=== PATIENT | female | born 1965 | race Caucasian/White ===

== ENCOUNTER → 2016-05-08 | Outpatient (CLI) | payer OTHER ==
[2016-05-08 10:27] LABS: BASO # 0.1 K/mm3 (0.0-0.2); BASO % 0.9 % (0.0-1.0); EOS # 0.2 K/mm3 (0.0-0.50); EOS % 2.8 % (0.0-3.0); LARGE UNSTAINED CELL # 0.2 K/mm3 (0.0-0.4); LARGE UNSTAINED CELL % 1.8 % (0.0-4.0); LYMPH # 2.7 K/mm3 (1.5-4.5); LYMPH % 30.1 % (24.0-44.0); MEAN CORPUSCULAR HEMOGLOBIN 27.7 pg (27.0-33.0); MEAN CORPUSCULAR HGB CONC 31.7 g/dl (32.0-36.5); MEAN CORPUSCULAR VOLUME 87.6 fl (80.0-96.0); MONO # 0.4 K/mm3 (0.0-0.8); MONO % 4.7 % (0.0-5.0); NEUTROPHILS % 59.6 % (36.0-66.0); PLATELET COUNT, AUTOMATED 260 k/mm3 (150-450); RED CELL DISTRIBUTION WIDTH 13.8 % (11.5-14.5); WHITE BLOOD COUNT 8.3 K/mm3 (4.0-10.0)
[2016-05-08 11:01] LABS: ALBUMIN 3.6 GM/DL (3.2-5.2); ALBUMIN/GLOBULIN RATIO 1.16 (1.00-1.93); ALKALINE PHOSPHATASE 100 U/L (45-117); ALT/SGPT 26 U/L (12-78); ANION GAP 6 MEQ/L (8-16); AST/SGOT 12 U/L (15-37); BILIRUBIN,TOTAL 0.4 MG/DL (0.2-1.0); BLOOD UREA NITROGEN 17 MG/DL (7-18); CALCIUM LEVEL 8.7 MG/DL (8.5-10.1); CARBON DIOXIDE LEVEL 29 MEQ/L (21-32); CHLORIDE LEVEL 106 MEQ/L (98-107); CHOLESTEROL LEVEL 150 MG/DL (<200); CREATININE FOR GFR 0.75 MG/DL (0.55-1.02); GLOMERULAR FILTRATION RATE > 60.0 (>51); GLUCOSE, FASTING 96 MG/DL (70-105); POTASSIUM SERUM 4.5 MEQ/L (3.5-5.1); SODIUM LEVEL 141 MEQ/L (136-145); TOTAL PROTEIN 6.7 GM/DL (6.4-8.2); TRIGLYCERIDES LEVEL 79 MG/DL (<150)
== END ==
LOC: M LAB 09:41
PROVIDERS: ATTEND Family Medicine Addiction Medicine
DX: D64.9 Anemia, unspecified (principal)

== ENCOUNTER → 2016-08-06 | Outpatient (CLI) | payer MEDICAID, OTHER, SELFPAY ==
[2016-08-06 11:25] LABS: ALBUMIN 3.4 GM/DL (3.2-5.2); ALBUMIN/GLOBULIN RATIO 1.03 (1.00-1.93); ALKALINE PHOSPHATASE 89 U/L (45-117); ALT/SGPT 21 U/L (12-78); ANION GAP 7 MEQ/L (8-16); AST/SGOT 8 U/L (15-37); BILIRUBIN,TOTAL 0.4 MG/DL (0.2-1.0); BLOOD UREA NITROGEN 20 MG/DL (7-18); CALCIUM LEVEL 8.4 MG/DL (8.5-10.1); CARBON DIOXIDE LEVEL 27 MEQ/L (21-32); CHLORIDE LEVEL 106 MEQ/L (98-107); CHOLESTEROL LEVEL 140 MG/DL (<200); CREATININE FOR GFR 0.61 MG/DL (0.55-1.02); GLOMERULAR FILTRATION RATE > 60.0 (>51); GLUCOSE, FASTING 105 MG/DL (70-105); POTASSIUM SERUM 4.5 MEQ/L (3.5-5.1); SODIUM LEVEL 140 MEQ/L (136-145); TOTAL PROTEIN 6.7 GM/DL (6.4-8.2); TRIGLYCERIDES LEVEL 55 MG/DL (<150)
== END ==
LOC: M LAB 10:10
PROVIDERS: ATTEND Family Medicine Addiction Medicine
DX: R73.9 Hyperglycemia, unspecified (principal)

== ENCOUNTER → 2016-08-28 | Outpatient (CLI) | payer MEDICAID ==
--- NOTE | 2016-08-28 10:21 | REP ---
Clinical: Abdominal pain. Technique: Real time damon scale ultrasound examination using curved array transducer. Findings: Status post cholecystectomy 2008. Liver and pancreas are normal in contour, size, echogenicity, and overall appearance without focal hepatic or pancreatic lesions identified. Mild fatty infiltration to the liver cannot be excluded. The common bile duct demonstrates normal compensatory dilatation measuring 8.8 mm diameter. Right kidney is normal in reniform shape without hydronephrosis and measures 11.2 x 5.9 x 4.4 cm. No ascites. Impression: Mild hepatosteatosis cannot be excluded. Otherwise normal right upper quadrant ultrasound. Signed by Oscar Renner MD 08/28/2016 10:12 A
== END ==
LOC: M RAD 09:25
PROVIDERS: ATTEND Family Medicine Addiction Medicine
DX: K76.0 Fatty (change of) liver, not elsewhere classified (principal)

== ENCOUNTER 2017-06-20 09:34 | Day surgery (SDC) | payer OTHER ==
[2017-06-20] MEDS ORDERED: NS 1,000 ML IV (10:45)
[2017-06-20] MEDS ORDERED: LIDOCAINE 2% INJ 100 MG/5 ML SDV (FOR ANES.) As Ordered ×3 (11:55→12:19)
[2017-06-20] MEDS ORDERED: PROPOFOL 200 MG/20 ML VIAL As Ordered ×3 (11:55→12:19)
== END 2017-06-20 12:53 | disposition home or self-care (01) ==
LOC: M OPP 09:34
DX: Z12.11 Encounter for screening for malignant neoplasm of colon (principal); K64.8 Other hemorrhoids; R12 Heartburn; K21.9 Gastro-esophageal reflux disease without esophagitis; E11.9 Type 2 diabetes mellitus without complications; E78.5 Hyperlipidemia, unspecified; M17.0 Bilateral primary osteoarthritis of knee; F32.9 Major depressive disorder, single episode, unspecified; Z79.84 Long term (current) use of oral hypoglycemic drugs; Z79.899 Other long term (current) drug therapy; Z88.8 Allergy status to other drugs, medicaments and biological substances
CPT/HCPCS: 45378

== ENCOUNTER → 2017-08-06 | Outpatient (REF) | payer OTHER ==
[2017-08-06 19:15] LABS: MALB URINE SIEMENS 32.3 MG/L; MAU/CREAT RATIO 22.4 MCG/MG (0.0-30.0)
[2017-08-06 20:13] LABS: ESTIMATED AVERAGE GLUCOSE 151 MG/DL (60-110); HEMOGLOBIN A1c 6.9 %
[2017-08-06 20:23] LABS: ALBUMIN 3.6 GM/DL (3.2-5.2); ALBUMIN/GLOBULIN RATIO 0.95 (1.00-1.93); ALKALINE PHOSPHATASE 84 U/L (45-117); ALT/SGPT 36 U/L (12-78); ANION GAP 9 MEQ/L (8-16); AST/SGOT 16 U/L (7-37); BILIRUBIN,TOTAL 0.4 MG/DL (0.2-1.0); BLOOD UREA NITROGEN 10 MG/DL (7-18); CALCIUM LEVEL 8.9 MG/DL (8.5-10.1); CARBON DIOXIDE LEVEL 28 MEQ/L (21-32); CHLORIDE LEVEL 103 MEQ/L (98-107); CHOLESTEROL LEVEL 257 MG/DL (<200); CHOLESTEROL RISK RATIO 4.942 (<5); CREATININE FOR GFR 0.75 MG/DL (0.55-1.30); GLOMERULAR FILTRATION RATE > 60.0 (>51); GLUCOSE, FASTING 121 MG/DL (70-100); HDL CHOLESTEROL 52 MG/DL (>40); LDL CHOLESTEROL 172.4 MG/DL (<100); NON-HDL-C 205 MG/DL; POTASSIUM SERUM 4.5 MEQ/L (3.5-5.1); SODIUM LEVEL 140 MEQ/L (136-145); TOTAL PROTEIN 7.4 GM/DL (6.4-8.2); TRIGLYCERIDES LEVEL 163 MG/DL (<150)
== END ==
LOC: M LAB REF 17:14
DX: E11.9 Type 2 diabetes mellitus without complications (principal)

== ENCOUNTER → 2018-01-09 | Outpatient (REF) | payer OTHER ==
[2018-01-11 15:28] LABS: HPV HYBRID CAPTURE II Negative (Negative)
== END ==
LOC: M LAB REF 18:44
DX: Z12.4 Encounter for screening for malignant neoplasm of cervix (principal)

== ENCOUNTER → 2018-02-21 | Outpatient (REF) | payer OTHER, MEDICAID ==
[2018-02-21 13:41] LABS: ALBUMIN 3.3 GM/DL (3.2-5.2); ALBUMIN/GLOBULIN RATIO 0.92 (1.00-1.93); ALKALINE PHOSPHATASE 111 U/L (45-117); ALT/SGPT 57 U/L (12-78); ANION GAP 9 MEQ/L (8-16); AST/SGOT 31 U/L (7-37); BILIRUBIN,TOTAL 0.4 MG/DL (0.2-1.0); BLOOD UREA NITROGEN 17 MG/DL (7-18); CARBON DIOXIDE LEVEL 28 MEQ/L (21-32); CHLORIDE LEVEL 103 MEQ/L (98-107); CHOLESTEROL LEVEL 244 MG/DL (<200); CREATININE FOR GFR 0.79 MG/DL (0.55-1.30); GLOMERULAR FILTRATION RATE > 60.0 (>51); GLUCOSE, FASTING 177 MG/DL (70-100); HDL CHOLESTEROL 40 MG/DL (>40); LDL CHOLESTEROL 168 MG/DL (<100); MAGNESIUM LEVEL 1.5 MG/DL (1.8-2.4); NON-HDL-C 204 MG/DL; POTASSIUM SERUM 4.7 MEQ/L (3.5-5.1); SODIUM LEVEL 140 MEQ/L (136-145); TOTAL PROTEIN 6.9 GM/DL (6.4-8.2); TRIGLYCERIDES LEVEL 181 MG/DL (<150)
[2018-02-21 13:59] LABS: ESTIMATED AVERAGE GLUCOSE 203 MG/DL (60-110); HEMOGLOBIN A1c 8.7 %
== END ==
LOC: M LAB REF 12:22
DX: I10 Essential (primary) hypertension (principal)

== ENCOUNTER → 2018-03-27 | Outpatient (REF) | payer OTHER, MEDICAID ==
[~2018-03-27] MED LIST: CELE20TA PO; IBUP1TAB7 PO; METF850T4 PO
== END ==
LOC: M LAB REF 16:48
PROVIDERS: ATTEND Family Medicine Addiction Medicine
DX: E61.2 Magnesium deficiency (principal)

== ENCOUNTER → 2018-04-30 | Outpatient (CLI) | payer OTHER ==
[~2018-04-30] MED LIST changes: +GASTROGRAFIN SOLUTION 30ML (Q9963) As Ordered ONE; +ISOVUE-370 76% 100ML VIAL (Q9967) As Ordered ONE
--- NOTE | 2018-04-30 10:42 | REP ---
CT ABDOMEN PELVIS WITH IV AND ORAL CONTRAST: HISTORY: Right upper quadrant pain. Question ascites. COMPARISON STUDY: October 24, 2012. CT CONTRAST DOSE: 100 mL of intravenous Isovue 370. CT FINDINGS: Preliminary digital mica layer radiograph demonstrates an unremarkable bowel gas pattern. On lung window settings at the lung bases, there is a slightly spiculated 1.4 cm noncalcified pulmonary nodule in the left lower lobe which merits further evaluation. This is a new finding compared to the 2013 prior study. There is marked diffuse fatty infiltration of the liver with areas of fat sparing in the anterior aspect of the left lobe. No focal liver mass lesion is seen. Gallbladder is surgically absent. No pancreatic abnormality is seen. No adrenal lesion is observed. There is no evidence of abdominal ascites. Small and large intestinal bowel loops are unremarkable. Normal appendix is seen. No abdominal wall defect is observed. Kidneys enhance symmetrically and appear morphologically intact. No hydronephrosis is seen. Normal caliber aorta is seen. No uterine or significant ovarian abnormality is observed. Urinary bladder is intact. No bony destructive lesion is seen. IMPRESSION: 1. Moderate to marked diffuse fatty infiltration of the liver. Liver is felt to be mildly enlarged with a craniocaudal imaging span in the midclavicular line of 18.7 cm. 2. Postcholecystectomy. Otherwise no significant intra-abdominal finding. 3. Incidental note is made of a spiculated 14 mm pulmonary nodule in the left lower lobe which is somewhat suspicious for primary lung malignancy. Recommend dedicated chest CT study and pulmonary medicine evaluation. Consider PET/CT. Electronically Signed by Will Alarcon MD 04/30/2018 11:17 A
== END ==
LOC: M RAD 08:09
PROVIDERS: ATTEND Surgery
DX: K76.0 Fatty (change of) liver, not elsewhere classified (principal); R91.1 Solitary pulmonary nodule
CPT/HCPCS: 74177; Q9963; Q9967

== ENCOUNTER → 2018-05-02 | Outpatient (CLI) | payer OTHER ==
[~2018-05-02] MED LIST changes: -GASTROGRAFIN SOLUTION 30ML (Q9963) As Ordered ONE
--- NOTE | 2018-05-02 09:13 | REP ---
CT CHEST WITH IV CONTRAST: HISTORY: Solitary pulmonary nodule seen on April 30, [address] CONTRAST DOSE: 75 mL of intravenous Isovue 370. CT FINDINGS: CT study again shows the 14 mm noncalcified slightly spiculated left lower lobe nodule seen at the left lung base laterally. No other pulmonary nodule is appreciated. Lung guerrier are otherwise clear. On soft tissue window settings, there is an enlarged lymph node in the left hilus measuring 15 x 13 x 19 mm. There is an somewhat suspicious sized lymph node at the left central hilus just above the left mainstem bronchus measuring 23 x 11 x 11 mm. There is a normal-appearing precarinal and a normal-sized subcarinal lymph node. No other mediastinal adenopathy is seen. No vascular abnormality is observed. No pleural or pericardial effusion is seen. Advanced diffuse fatty infiltration of the liver is again noted. No bony abnormalities seen. IMPRESSION: 14 mm nodule in the left lower lobe with suspicious lymph nodes in the left hilus and left mediastinum. Consider PET/CT and histologic sampling. Electronically Signed by Will Alarcon MD 05/02/2018 10:39 A
== END ==
LOC: M RAD 07:44
PROVIDERS: ATTEND Surgery
DX: R91.1 Solitary pulmonary nodule (principal); R59.0 Localized enlarged lymph nodes; K76.0 Fatty (change of) liver, not elsewhere classified
CPT/HCPCS: 71260; Q9967

== ENCOUNTER → 2018-06-10 | Outpatient (CLI) | payer OTHER ==
[~2018-06-10] MED LIST changes: -ISOVUE-370 76% 100ML VIAL (Q9967) As Ordered ONE
--- NOTE | 2018-06-11 13:57 | REP ---
PET/CT: History: Solitary pulmonary nodule. Comparisons: Comparison CT study May 02, 2018. TECHNIQUE: 62 minutes following the intravenous injection of a 7.9 mCi dose of F-18 FDG, three-dimensional PET scintigraphy is acquired from the skull base to the proximal thighs. Triplanar noncontrast CT scanning is acquired through the same anatomic range for attenuation correction, and image registration with scan parameters optimized to minimize radiation exposure to the patient. PET scintigraphy and CT datasets were fused and displayed on a workstation with multiplanar and projection display capability. PET/CT Findings: The 14 mm nodule recently identified in the left lower lobe is hypermetabolic. Maximum standard uptake value is 2.69. There is hypermetabolic lymphadenopathy in the left inferior hilus with maximum standard uptake value 11.78. The previously noted subcarinal lymph node is also hypermetabolic. Maximum standard uptake value is 5.04. There is esophageal mucosal uptake. No other abnormal mediastinal or pulmonary parenchymal hypermetabolic uptake is seen. No adrenal abnormality is observed. There is diffuse fatty infiltration of the liver. The patient is post cholecystectomy. No abnormal hypermetabolic abdominal or pelvic uptake is appreciated. The head and neck soft tissues are unremarkable. Impression: The nodule identified in the left lower lobe is hypermetabolic, as is a lymph node in the left hilus and another in the subcarinal region. Electronically Signed by Will Alarcon MD 06/11/2018 05:06 P
== END ==
LOC: M PLARAD 11:15
PROVIDERS: ATTEND Internal Medicine Pulmonary Disease
DX: R91.1 Solitary pulmonary nodule (principal); R59.9 Enlarged lymph nodes, unspecified
CPT/HCPCS: 78815; A9552

== ENCOUNTER → 2018-06-18 | Outpatient (REF) | payer OTHER ==
[~2018-06-18] MED LIST changes: +LOSA50TA88 PO; +OMEP40CA2 PO; +STEG5TAB PO
[2018-06-18 18:14] LABS: INR 0.92; PROTHROMBIN TIME 12.5 SECONDS (12.1-14.4)
[2018-06-24 10:12] LABS: ASPERGILLUS FLAVUS ABY Negative (Neg:<1:1); ASPERGILLUS FUMIGATUS ABY Negative (Neg:<1:1); ASPERGILLUS NIGER ABY Negative (Neg:<1:1); BLASTOMYCES ANTIBODY LEVEL Negative (Neg:<1:1); CRYPTOCOCCUS ANTIGEN SER Negative (Negative)
== END ==
LOC: M LAB REF 16:59
PROVIDERS: ATTEND Internal Medicine Pulmonary Disease
DX: R91.8 Other nonspecific abnormal finding of lung field (principal)

== ENCOUNTER 2018-06-24 09:05 | Day surgery (SDC) | payer OTHER ==
[~2018-06-24] VITALS: Ht 157.5 cm; Wt 123.8 kg
[2018-06-24] MEDS ORDERED: LIDOCAINE 2% INJ 100 MG/5 ML SDV (FOR ANES.) As Ordered ONE (09:14)
[2018-06-24] MEDS ORDERED: ROCURONIUM BROMIDE 50 MG/5 ML VIAL As Ordered ONE (09:14)
[2018-06-24] MEDS ORDERED: fentaNYL 100 MCG/2 ML INJECTION (J3010) As Ordered ONE (09:14)
[2018-06-24] MEDS ORDERED: MIDAZOLAM INJ 2 MG/2 ML VIAL (J2250) As Ordered ONE (09:14)
[2018-06-24] MEDS ORDERED: PROPOFOL 200 MG/20 ML VIAL As Ordered ONE (09:14)
[2018-06-24] MEDS ORDERED: LIDOCAINE 1% SDV INJ 30 ML VIAL As Ordered ONE (10:08)
[2018-06-24] MEDS ORDERED: THROMBIN SOLN 5,000 UNITS VIAL As Ordered ONE (10:08)
[2018-06-24] MEDS ORDERED: EPINEPHrine 1MG/10ML SYRINGE 1.5IN As Ordered ONE (10:08)
[2018-06-24] MEDS ORDERED: LIDOCAINE VISCOUS 2% SOLN 15ML UDC As Ordered ONE (10:08)
[2018-06-24] MEDS ORDERED: CETACAINE SPRAY 5GM As Ordered ONE (10:27)
[2018-06-24] MEDS ORDERED: KETOROLAC 60 MG/2 ML VIAL (J1885) As Ordered ONE (11:01)
[2018-06-24] MEDS ORDERED: dexameTHASONE 4 MG/ML 1ML VIAL (J1100) As Ordered ONE (11:01)
[2018-06-24] MEDS ORDERED: ONDANSETRON 4MG/2ML VIAL (J2405) As Ordered ONE (11:01)
[2018-06-24] MEDS ORDERED: SUGAMMADEX SODIUM 500 MG/5 ML VIAL (BRIDION) As Ordered ONE (11:08)
[2018-06-24] MEDS ORDERED: PERCOCET 5MG/325MG TAB PO PRN (11:30)
[2018-06-24] MEDS ORDERED: ONDANSETRON 4MG/2ML VIAL (J2405) IV PRN (11:30)
[2018-06-24] MEDS ORDERED: METOCLOPRAMIDE INJ 10MG/2ML VIAL (J2765) IV PRN (11:30)
[2018-06-24] MEDS ORDERED: MEPERIDINE INJ 25 MG/ML VIAL (J2175) IV PRN (11:30)
[2018-06-24] MEDS ORDERED: fentaNYL 100 MCG/2 ML INJECTION (J3010) IV PRN (11:30)
[2018-06-24] MEDS ORDERED: LR 1,000 ML IV SCH (11:30)
--- NOTE | 2018-06-24 11:34 | RO ---
DATE OF PROCEDURE: 06/24/2018 PREOPERATIVE DIAGNOSIS: Abnormal CT scan. POSTOPERATIVE DIAGNOSIS: Abnormal CT scan. PROCEDURE: Fiberoptic bronchoscopy with endobronchial biopsies and endobronchial ultrasound with fine needle aspiration (FNA). SURGEON: Dr. Mitch Espinoza. DATA ANALYTICS CHIEF SCIENTIST: Dr. Serafin Zimmer who performed the FNA portion of the procedure. ANESTHESIA: General. OPERATIVE FINDINGS: 1. Endotracheal tube in good position. 2. Diffuse mild mucosal edema. 3. Some endobronchial setting of the left mainstem. Informed consent was obtained prior to the procedure. DESCRIPTION OF PROCEDURE: After patient identified and the above anesthesia give, the fiberoptic microscope was easily passed via the existing endotracheal tube. The tube is in good position. Lisa was mildly broad. Both mainstem bronchus widely patent. The left lung was entered first. All segment and subsegments of the upper, middle and lower lobes easily identified and widely patent. There was some submucosal studding appearance, especially in the distal left mainstem leading into the left upper lobe. Attention was then turned to the right. Again, mild edema but all segments and subsegments upper, middle and lower lobes were easily identified and widely patent. The endobronchial ultrasound scope was then passed. Nodes in the pretracheal as well as the subcarinal and left hilar areas were identified. The one most bright on PET scan was the left hilar. The scope was then turned over to Dr. Zimmer. Multiple passes of the #11-12 node were taken. Good cytologic specimens were obtained. Only minimal bleeding was encountered. That scope was then withdrawn. The standard scope was then passed again. Only minimal bleeding was noted. The submucosal studding area was biopsied and at least five or six reasonable specimens were obtained. The area was then washed vigorously for specimens. Thrombin was placed, 5000 units, to assure adequate hemostasis. When that was assured, the scope was then withdrawn and the procedure terminated. No immediate complications noted. Care was turned over to the anesthesia department for extubation.
--- NOTE | 2018-06-24 12:20 | RO ---
DATE OF PROCEDURE: 06/24/2018 This is an him assistant to Dr. Espinoza. Dr. Espinoza had seen the patient in the office and performed educated consent. PREOPERATIVE DIAGNOSIS: Abnormal chest CT lymphadenopathy. POSTPROCEDURE DIAGNOSIS: Abnormal chest CT lymphadenopathy. PROCEDURE: I assisted with the endobronchial ultrasound portion of the procedure. SURGEON: Dr. Serafin Zimmer DESCRIPTION OF PROCEDURE: After informed consent was reviewed and timeout was performed with two patient identifiers, Dr. Espinoza performed initial bronchoscopic exam. Please refer to his note for further details. After endoscopic bronchoscopic exam, the 1-T190 bronchoscope was removed and endobronchial ultrasound was inserted by myself as the case was handed over to me. I first viewed the left pretracheal area. There was a 1 cm node. This was adjacent to large vasculature. I then viewed the subcarinal area. There was a flat subcarinal node. The subcarinal node was more prominent on the left side was some necrotic features. I then viewed the left hilum which had the largest necrotic node and correlated with the most abnormal lymph node on PET imaging. After viewing and identifying this left hilar node in the 11L position, fine-needle aspiration was performed of this lymph node. Multiple cores were taken. After adequate sampling, the procedure was stopped. Endobronchial ultrasound was removed and the bronchoscope was inserted. The case was handed back over to Dr. Espinoza. No significant blood loss. No observed complications. VINITAD
[2018-06-24 12:45] VITALS: BP 130/66
== END 2018-06-24 12:56 | disposition home or self-care (01) ==
LOC: M SDC 09:05
PROVIDERS: ATTEND Internal Medicine Pulmonary Disease
DX: R91.8 Other nonspecific abnormal finding of lung field (principal); I10 Essential (primary) hypertension; E11.9 Type 2 diabetes mellitus without complications; E78.00 Pure hypercholesterolemia, unspecified; F41.9 Anxiety disorder, unspecified; F32.9 Major depressive disorder, single episode, unspecified; K21.9 Gastro-esophageal reflux disease without esophagitis; M17.0 Bilateral primary osteoarthritis of knee; R06.02 Shortness of breath; R06.83 Snoring; R32 Unspecified urinary incontinence; E66.9 Obesity, unspecified; Z68.43 Body mass index [BMI] 50.0-59.9, adult; Z88.5 Allergy status to narcotic agent; Z79.899 Other long term (current) drug therapy; Z79.84 Long term (current) use of oral hypoglycemic drugs
CPT/HCPCS: 31625; 31652; 87070; 87102; 87116; 87205; 87206; 88104; 88173; 88305; 88312; 88313; J1100; J1885; J2250; J2405; J3010

== ENCOUNTER → 2018-07-10 | Outpatient (REF) | payer OTHER ==
[2018-07-10 13:47] LABS: BASO % 0.4 % (0.0-1.0); EOS # 0.2 10^3/uL (0.0-0.50); EOS % 3.1 % (0.0-3.0); HEMATOCRIT 41.8 % (36.0-47.0); HEMOGLOBIN 13.2 g/dl (12.0-15.5); LYMPH # 1.8 10^3/uL (1.5-4.5); LYMPH % 23.4 % (24.0-44.0); MEAN CORPUSCULAR HEMOGLOBIN 28.8 pg (27.0-33.0); MEAN CORPUSCULAR HGB CONC 31.6 g/dl (32.0-36.5); MEAN CORPUSCULAR VOLUME 91.1 fl (80.0-96.0); MONO # 0.5 10^3/uL (0.0-0.8); NEUTROPHILS # 5.2 10^3/uL (1.8-7.7); NEUTROPHILS % 66.7 % (36.0-66.0); PLATELET COUNT, AUTOMATED 342 10^3/uL (150-450); RED BLOOD COUNT 4.59 10^6/uL (4.00-5.40); WHITE BLOOD COUNT 7.8 10^3/uL (4.0-10.0)
[2018-07-10 14:27] LABS: ERYTHROCYTE SEDIMENTATION RATE 27 mm/hr (0-30)
[2018-07-10 14:35] LABS: ALBUMIN 3.5 GM/DL (3.2-5.2); ALT/SGPT 43 U/L (12-78); BILIRUBIN,TOTAL 0.4 MG/DL (0.2-1.0); BLOOD UREA NITROGEN 14 MG/DL (7-18); C REACTIVE PROTEIN QUANTITATIV 1.05 MG/DL (0.00-0.30); CALCIUM LEVEL 9.3 MG/DL (8.5-10.1); CARBON DIOXIDE LEVEL 26 MEQ/L (21-32); CHLORIDE LEVEL 104 MEQ/L (98-107); COMPLEMENT C3 181 MG/DL (90-180); COMPLEMENT C4 38 MG/DL (10-40); CREATININE FOR GFR 0.64 MG/DL (0.55-1.30); GLOMERULAR FILTRATION RATE > 60.0 (>51); GLUCOSE, FASTING 123 MG/DL (70-100); IMMUNOGLOBULIN G 931 MG/DL (681-1648); POTASSIUM SERUM 4.1 MEQ/L (3.5-5.1); SODIUM LEVEL 138 MEQ/L (136-145); TOTAL PROTEIN 6.8 GM/DL (6.4-8.2)
[2018-07-11 11:06] LABS: HIV 1&2 SCREEN CENTAUR NEGATIVE (NEGATIVE)
[2018-07-15 00:06] LABS: IgA ULTRASENSITIVE 219.4 mg/dL (72-321); TISSUE TRANSGLUTAMINASE IgA <2 U/mL (0-3); TISSUE TRANSGLUTAMINASE IgG <2 U/mL (0-5)
== END ==
LOC: M SFHCPLAZ 11:36
PROVIDERS: ATTEND Internal Medicine Infectious Disease
DX: B39.9 Histoplasmosis, unspecified (principal); R10.84 Generalized abdominal pain

== ENCOUNTER → 2018-07-31 | Outpatient (REF) | payer OTHER ==
[2018-07-31 13:44] LABS: ALBUMIN 3.2 GM/DL (3.2-5.2); ALT/SGPT 38 U/L (12-78); BILIRUBIN,TOTAL 0.3 MG/DL (0.2-1.0); BLOOD UREA NITROGEN 14 MG/DL (7-18); CALCIUM LEVEL 8.1 MG/DL (8.5-10.1); CARBON DIOXIDE LEVEL 28 MEQ/L (21-32); CHLORIDE LEVEL 106 MEQ/L (98-107); CHOLESTEROL LEVEL 219 MG/DL (<200); CHOLESTEROL RISK RATIO 5.763 (<5); CREATININE FOR GFR 0.74 MG/DL (0.55-1.30); GLOMERULAR FILTRATION RATE > 60.0 (>51); GLUCOSE, FASTING 148 MG/DL (70-100); HDL CHOLESTEROL 38 MG/DL (>40); LDL CHOLESTEROL 140 MG/DL (<100); NON-HDL-C 181 MG/DL; POTASSIUM SERUM 4.1 MEQ/L (3.5-5.1); SODIUM LEVEL 139 MEQ/L (136-145); TRIGLYCERIDES LEVEL 204 MG/DL (<150)
[2018-07-31 13:51] LABS: HEMOGLOBIN A1c 8.6 %
[2018-07-31 14:02] LABS: CREATININE, URINE 74.3 MG/DL; MALB URINE SIEMENS 27.7 MG/L; MAU/CREAT RATIO 37.2 MCG/MG (0.0-30.0)
== END ==
LOC: M LAB REF 12:42
PROVIDERS: ATTEND Family Medicine Addiction Medicine
DX: E11.9 Type 2 diabetes mellitus without complications (principal)

== ENCOUNTER → 2018-08-12 | Outpatient (REF) | payer OTHER ==
[2018-08-12 16:58] LABS: ALBUMIN 3.6 GM/DL (3.2-5.2); ALT/SGPT 40 U/L (12-78); BILIRUBIN,DIRECT < 0.1 MG/DL (0.0-0.2); BILIRUBIN,TOTAL 0.3 MG/DL (0.2-1.0); C REACTIVE PROTEIN QUANTITATIV 0.88 MG/DL (0.00-0.30); TOTAL PROTEIN 6.8 GM/DL (6.4-8.2)
[2018-08-12 17:00] LABS: BASO % 0.4 % (0.0-1.0); EOS # 0.2 10^3/uL (0.0-0.50); EOS % 2.2 % (0.0-3.0); HEMATOCRIT 42.6 % (36.0-47.0); HEMOGLOBIN 13.2 g/dl (12.0-15.5); LYMPH # 2.2 10^3/uL (1.5-4.5); MEAN CORPUSCULAR HEMOGLOBIN 28.3 pg (27.0-33.0); MEAN CORPUSCULAR VOLUME 91.4 fl (80.0-96.0); MONO # 0.6 10^3/uL (0.0-0.8); MONO % 6.2 % (0.0-5.0); NEUTROPHILS # 6.6 10^3/uL (1.8-7.7); NEUTROPHILS % 67.8 % (36.0-66.0); PLATELET COUNT, AUTOMATED 344 10^3/uL (150-450); RED BLOOD COUNT 4.66 10^6/uL (4.00-5.40); WHITE BLOOD COUNT 9.7 10^3/uL (4.0-10.0)
== END ==
LOC: M SFHCPLAZ 13:48
PROVIDERS: ATTEND Internal Medicine Infectious Disease
DX: B39.9 Histoplasmosis, unspecified (principal)

== ENCOUNTER → 2018-08-14 | Outpatient (CLI) | payer OTHER ==
--- NOTE | 2018-08-14 10:11 | REPMRS ---
Patient History The patient states she has not had a clinical breast exam in over a year. No known family history of cancer. 3D TOMOSYNTHESIS WAS PERFORMED. Digital Mammo Screening Bilat: August 14, 2018 - Exam #: [id number] Bilateral CC and MLO view(s) were taken. Technologist: Sole Walton, Technologist Prior study comparison: November 24, 2015, bilateral digital mammo screening bilat performed at [facility]. November 08, 2014, bilateral digital mammo screening bilat performed at [facility]. FINDINGS: The breast tissue is heterogeneously dense. This may lower the sensitivity of mammography. There has been no change in the appearance of the mammogram from the prior studies. There is a moderate amount of residual fibroglandular tissue which is fairly symmetric. There is no interval development of dominant mass, areas of architectural distortion, or clustered microcalcification typical of malignancy. Assessment: BI-RADS/ACR category 1 mammogram. Negative Mammogram. Recommendation Routine screening mammogram in 1 year (for women over age 40). This mammogram was interpreted with the aid of an FDA-approved computer-aided dectection system. Electronically Signed By: Bill Espino MD 08/14/18 [id number]
== END ==
LOC: M RAD 08:37
PROVIDERS: ATTEND Family Medicine Addiction Medicine
DX: Z12.31 Encounter for screening mammogram for malignant neoplasm of breast (principal)

== ENCOUNTER → 2018-08-21 | Outpatient (CLI) | payer OTHER ==
--- NOTE | 2018-08-21 10:02 | REP ---
Complete abdominal sonography: History: Histoplasmosis. Comparison CT study April 30, 2018. Sonographic findings: The gallbladder is surgically absent. Common bile duct is normal measuring 0.8 cm. The liver appears enlarged and shows increased echogenicity and poor insonation diffusely consistent with fatty infiltration. No focal hepatic mass lesion is seen. Limited views of the pancreas show no abnormality. Pancreas is partially obscured. The spleen is normal in size measuring 10.8 cm in greatest diameter. It is homogeneous. There is no evidence of ascites. Renal cortical echogenicity pattern is normal and renal contours are smooth bilaterally. The right kidney measures 11.8 x 6.0 x 4.6 cm. Left renal dimensions are 11.8 x 4.7 x 6.0 cm. Impression: Findings consistent with moderate fatty infiltration of the liver. Hepatic enlargement. Post cholecystectomy. Otherwise negative. Electronically Signed by Will Alarcon MD 08/21/2018 01:58 P
== END ==
LOC: M RAD 07:58
PROVIDERS: ATTEND Internal Medicine Infectious Disease
DX: R16.0 Hepatomegaly, not elsewhere classified (principal); B39.9 Histoplasmosis, unspecified; Z90.49 Acquired absence of other specified parts of digestive tract

== ENCOUNTER → 2018-10-30 | Outpatient (CLI) | payer OTHER ==
[2018-10-30 10:39] LABS: BASO # 0.1 10^3/uL (0.0-0.2); BASO % 0.6 % (0.0-1.0); EOS # 0.3 10^3/uL (0.0-0.50); HEMATOCRIT 41.9 % (36.0-47.0); HEMOGLOBIN 13.3 g/dl (12.0-15.5); LYMPH # 2.1 10^3/uL (1.5-4.5); MEAN CORPUSCULAR HEMOGLOBIN 28.4 pg (27.0-33.0); MEAN CORPUSCULAR HGB CONC 31.7 g/dl (32.0-36.5); MEAN CORPUSCULAR VOLUME 89.5 fl (80.0-96.0); MONO # 0.6 10^3/uL (0.0-0.8); NEUTROPHILS # 4.9 10^3/uL (1.8-7.7); NEUTROPHILS % 62.1 % (36.0-66.0); PLATELET COUNT, AUTOMATED 336 10^3/uL (150-450); RED BLOOD COUNT 4.68 10^6/uL (4.00-5.40)
[2018-10-30 11:11] LABS: ALBUMIN 3.5 GM/DL (3.2-5.2); ALT/SGPT 42 U/L (12-78); BILIRUBIN,TOTAL 0.2 MG/DL (0.2-1.0); BLOOD UREA NITROGEN 13 MG/DL (7-18); C REACTIVE PROTEIN QUANTITATIV 1.17 MG/DL (0.00-0.30); CALCIUM LEVEL 8.9 MG/DL (8.5-10.1); CARBON DIOXIDE LEVEL 31 MEQ/L (21-32); CHLORIDE LEVEL 105 MEQ/L (98-107); CREATININE FOR GFR 0.77 MG/DL (0.55-1.30); GLOMERULAR FILTRATION RATE > 60.0 (>51); GLUCOSE, FASTING 150 MG/DL (70-100); POTASSIUM SERUM 4.4 MEQ/L (3.5-5.1); SODIUM LEVEL 140 MEQ/L (136-145)
== END ==
LOC: M LAB 09:11
PROVIDERS: ATTEND Internal Medicine Infectious Disease
DX: B39.9 Histoplasmosis, unspecified (principal)

== ENCOUNTER → 2018-10-30 | Outpatient (REF) | payer OTHER ==
[2018-10-30 13:26] LABS: ALBUMIN 3.4 GM/DL (3.2-5.2); ALT/SGPT 43 U/L (12-78); BILIRUBIN,TOTAL 0.2 MG/DL (0.2-1.0); BLOOD UREA NITROGEN 12 MG/DL (7-18); CALCIUM LEVEL 8.9 MG/DL (8.5-10.1); CARBON DIOXIDE LEVEL 27 MEQ/L (21-32); CHLORIDE LEVEL 105 MEQ/L (98-107); CHOLESTEROL LEVEL 245 MG/DL (<200); CHOLESTEROL RISK RATIO 5.697 (<5); CREATININE FOR GFR 0.77 MG/DL (0.55-1.30); GLOMERULAR FILTRATION RATE > 60.0 (>51); GLUCOSE, FASTING 149 MG/DL (70-100); HDL CHOLESTEROL 43 MG/DL (>40); LDL CHOLESTEROL 168 MG/DL (<100); NON-HDL-C 202 MG/DL; POTASSIUM SERUM 4.2 MEQ/L (3.5-5.1); SODIUM LEVEL 140 MEQ/L (136-145); TOTAL 25(OH) VITAMIN D 23.8 NG/ML (30.0-100.0); TOTAL PROTEIN 7.1 GM/DL (6.4-8.2); TRIGLYCERIDES LEVEL 172 MG/DL (<150)
[2018-10-30 13:45] LABS: HEMOGLOBIN A1c 8.6 %
== END ==
LOC: M LAB REF 12:32
PROVIDERS: ATTEND Family Medicine Addiction Medicine
DX: E11.9 Type 2 diabetes mellitus without complications (principal)

== ENCOUNTER → 2018-11-26 | Outpatient (CLI) | payer OTHER ==
[~2018-11-26] MED LIST changes: +ISOVUE-370 76% 100ML VIAL (Q9967) As Ordered ONE
--- NOTE | 2018-11-26 12:30 | REP ---
REASON FOR EXAM: Histoplasmosis. COMPARISON: 05/02/2018. CONTRAST: 100 mL Isovue 370. There is mediastinal adenopathy which may have increased somewhat compared to the prior exam. Today shows the large node having a cross sectional short axis dimension of 1.5 cm previously measured in the plane that node measured 1.1 cm. The prominent lymph nodes seen previously in the left hilum which measured 1.3 cm now measures 9 mm. There is a prominent, but nonenlarged subcarinal lymph node which measures 9 mm. It is essentially unchanged possibly slightly larger compared to the prior exam. There is no right hilar adenopathy. There are no pleural or pericardial effusions. There is no change in the imaged upper abdomen. Diffuse low density is again seen throughout the hepatic parenchyma consistent with fatty infiltration of the liver. Bone window technique throughout the exam shows the osseous structures to be stable and intact. Evaluation of the lung guerrier shows an irregular somewhat spiculated nodule in the left lower lobe abutting the fissure to the lingula and measuring approximately 1.1 x 0.9 x 1.1 cm. It appears to have gotten slightly smaller compared to the prior exam. No new or additional abnormal nodules, mass, or opacities have developed. IMPRESSION: 1. Adenopathy as described above. 2. Left lower lobe nodule as described above. 3. Diffuse fatty infiltration of the liver. 4. Other findings as described above. According to the revised Fleischner's Society criteria unless the patient has known benign etiology for the adenopathy and left lower lobe nodule and even though the left lower lobe nodule may have slightly decreased in size due to its characteristics today consideration should still be made for PET/CT if clinically relevant. Electronically Signed by Sumit Darnell DO 11/26/2018 12:42 P
== END ==
LOC: M RAD 08:48
PROVIDERS: ATTEND Internal Medicine Pulmonary Disease
DX: B39.2 Pulmonary histoplasmosis capsulati, unspecified (principal); R91.8 Other nonspecific abnormal finding of lung field; K76.0 Fatty (change of) liver, not elsewhere classified; R91.1 Solitary pulmonary nodule; R59.0 Localized enlarged lymph nodes
CPT/HCPCS: 71260; Q9967

== ENCOUNTER → 2019-02-24 | Outpatient (REF) | payer OTHER ==
[~2019-02-24] MED LIST changes: -ISOVUE-370 76% 100ML VIAL (Q9967) As Ordered ONE; -OMEP40CA2 PO; +OMEP40CA97 PO
[2019-02-24 12:43] LABS: ALBUMIN 3.5 GM/DL (3.2-5.2); ALT/SGPT 41 U/L (12-78); BILIRUBIN,TOTAL 0.5 MG/DL (0.2-1.0); BLOOD UREA NITROGEN 19 MG/DL (7-18); CARBON DIOXIDE LEVEL 28 MEQ/L (21-32); CHLORIDE LEVEL 103 MEQ/L (98-107); CHOLESTEROL LEVEL 188 MG/DL (<200); CHOLESTEROL RISK RATIO 4.476 (<5); CREATININE FOR GFR 0.74 MG/DL (0.55-1.30); GLOMERULAR FILTRATION RATE > 60.0 (>51); GLUCOSE, FASTING 125 MG/DL (70-100); HDL CHOLESTEROL 42 MG/DL (>40); LDL CHOLESTEROL 111 MG/DL (<100); NON-HDL-C 146 MG/DL; POTASSIUM SERUM 4.2 MEQ/L (3.5-5.1); SODIUM LEVEL 138 MEQ/L (136-145); TOTAL PROTEIN 7.1 GM/DL (6.4-8.2); TRIGLYCERIDES LEVEL 174 MG/DL (<150)
[2019-02-24 12:55] LABS: HEMOGLOBIN A1c 7.7 %
== END ==
LOC: M LAB REF 11:32
PROVIDERS: ATTEND Nurse Practitioner Family
DX: Z00.01 Encounter for general adult medical examination with abnormal findings (principal)

== ENCOUNTER → 2019-06-03 | Outpatient (REF) | payer OTHER, MEDICAID ==
[2019-06-03 13:11] LABS: BASO % 0.3 % (0.0-1.0); EOS # 0.2 10^3/uL (0.0-0.5); EOS % 2.3 % (0.0-3.0); HEMATOCRIT 43.8 % (36.0-47.0); HEMOGLOBIN 13.9 g/dl (12.0-15.5); LYMPH # 0.9 10^3/uL (1.5-5.0); LYMPH % 12.4 % (24.0-44.0); MEAN CORPUSCULAR HEMOGLOBIN 27.9 pg (27.0-33.0); MEAN CORPUSCULAR HGB CONC 31.7 g/dl (32.0-36.5); MONO # 0.4 10^3/uL (0.0-0.8); MONO % 5.2 % (0.0-5.0); NEUTROPHILS # 5.6 10^3/uL (1.5-8.5); NEUTROPHILS % 79.5 % (36.0-66.0); PLATELET COUNT, AUTOMATED 333 10^3/uL (150-450); RED BLOOD COUNT 4.98 10^6/uL (4.00-5.40); WHITE BLOOD COUNT 7.1 10^3/uL (4.0-10.0)
[2019-06-03 13:35] LABS: ALBUMIN 3.8 GM/DL (3.2-5.2); ALT/SGPT 30 U/L (12-78); BILIRUBIN,TOTAL 0.5 MG/DL (0.2-1.0); BLOOD UREA NITROGEN 17 MG/DL (7-18); CARBON DIOXIDE LEVEL 23 MEQ/L (21-32); CHLORIDE LEVEL 105 MEQ/L (98-107); CHOLESTEROL LEVEL 193 MG/DL (<200); CHOLESTEROL RISK RATIO 4.195 (<5); CREATININE FOR GFR 0.93 MG/DL (0.55-1.30); GLOMERULAR FILTRATION RATE > 60.0 (>51); GLUCOSE, FASTING 125 MG/DL (70-100); HDL CHOLESTEROL 46 MG/DL (>40); LDL CHOLESTEROL 119 MG/DL (<100); NON-HDL-C 147 MG/DL; SODIUM LEVEL 138 MEQ/L (136-145); TOTAL PROTEIN 7.3 GM/DL (6.4-8.2); TRIGLYCERIDES LEVEL 139 MG/DL (<150)
[2019-06-03 13:52] LABS: HEMOGLOBIN A1c 7.4 %
== END ==
LOC: M LAB REF 11:53
PROVIDERS: ATTEND Family Medicine
DX: R73.09 Other abnormal glucose (principal)

== ENCOUNTER → 2019-06-28 | Outpatient (REF) | payer OTHER, MEDICAID | LOC: M LAB REF 13:20 | PROVIDERS: ATTEND Physician Assistant Medical | DX: J02.9 Acute pharyngitis, unspecified (principal) ==

== ENCOUNTER → 2019-07-13 | Outpatient (CLI) | payer OTHER ==
--- NOTE | 2019-07-13 11:25 | REP ---
CT CHEST WITHOUT IV CONTRAST: CT chest performed without IV contrast. Sagittal and coronal reconstruction images are performed. Comparison is made to prior study of 11/26/2018, as well as CT abdomen 04/30/2018 Once again, there is a nodule in the left lower lobe. This measures 1.1 cm in maximum diameter. Margins are mildly irregular. This is unchanged since the prior study of 11/26/2018. It appears to have mildly decreased in size since 04/30/2018 when it measured about 1.4 cm in diameter. No new nodules are seen bilaterally. There is no infiltrate in either lung. Mildly enlarged lymph node to the left of the carlos enrique measures 1.3 cm in short axis, unchanged. There are adjacent subcentimeter lymph nodes in the mediastinum and hilar regions. No axillary adenopathy is seen. There is mild atherosclerotic calcification of the thoracic aorta without aneurysm. The heart is not enlarged. There is no pleural or pericardial effusion. There is diffuse fatty infiltration of the liver. Metallic clips are seen in the gallbladder fossa. IMPRESSION: Stable left lower lobe nodule measuring 1.1 cm in diameter. There is no change in size or appearance since 11/26/2018 exam. The nodule has mildly decreased in size since 04/30/2018 CT abdomen. Stable mildly enlarged lymph node is seen at the left of the carlos enrique. Electronically Signed by Bill Espino MD 07/13/2019 03:10 P
== END ==
LOC: M RAD 09:02
PROVIDERS: ATTEND Internal Medicine Pulmonary Disease
DX: B39.2 Pulmonary histoplasmosis capsulati, unspecified (principal)

== ENCOUNTER → 2019-08-27 | Outpatient (REF) | payer OTHER ==
[2019-08-27 13:03] LABS: BASO % 0.4 % (0.0-1.0); EOS # 0.3 10^3/uL (0.0-0.5); EOS % 2.7 % (0.0-3.0); HEMATOCRIT 41.5 % (36.0-47.0); HEMOGLOBIN 13.2 g/dl (12.0-15.5); LYMPH # 2.1 10^3/uL (1.5-5.0); LYMPH % 19.7 % (24.0-44.0); MEAN CORPUSCULAR HEMOGLOBIN 28.1 pg (27.0-33.0); MEAN CORPUSCULAR HGB CONC 31.8 g/dl (32.0-36.5); MEAN CORPUSCULAR VOLUME 88.3 fl (80.0-96.0); MONO # 0.6 10^3/uL (0.0-0.8); MONO % 5.6 % (0.0-5.0); NEUTROPHILS # 7.6 10^3/uL (1.5-8.5); NEUTROPHILS % 71.3 % (36.0-66.0); PLATELET COUNT, AUTOMATED 300 10^3/uL (150-450); WHITE BLOOD COUNT 10.7 10^3/uL (4.0-10.0)
[2019-08-27 13:17] LABS: ALBUMIN 3.2 GM/DL (3.2-5.2); ALT/SGPT 26 U/L (12-78); BILIRUBIN,TOTAL 0.2 MG/DL (0.2-1.0); BLOOD UREA NITROGEN 20 MG/DL (7-18); CALCIUM LEVEL 8.9 MG/DL (8.5-10.1); CARBON DIOXIDE LEVEL 27 MEQ/L (21-32); CHLORIDE LEVEL 107 MEQ/L (98-107); CHOLESTEROL LEVEL 202 MG/DL (<200); CHOLESTEROL RISK RATIO 4.208 (<5); CREATININE FOR GFR 0.68 MG/DL (0.55-1.30); FREE T4 0.91 NG/DL (0.76-1.46); GLOMERULAR FILTRATION RATE > 60.0 (>51); GLUCOSE, FASTING 155 MG/DL (70-100); HDL CHOLESTEROL 48 MG/DL (>40); LDL CHOLESTEROL 120 MG/DL (<100); MAGNESIUM LEVEL 1.8 MG/DL (1.8-2.4); NON-HDL-C 154 MG/DL; POTASSIUM SERUM 4.4 MEQ/L (3.5-5.1); SODIUM LEVEL 141 MEQ/L (136-145); TOTAL 25(OH) VITAMIN D 24.2 NG/ML (30.0-100.0); TOTAL PROTEIN 6.5 GM/DL (6.4-8.2); TRIGLYCERIDES LEVEL 169 MG/DL (<150)
[2019-08-27 13:42] LABS: HEMOGLOBIN A1c 7.8 %
== END ==
LOC: M LAB REF 12:13
PROVIDERS: ATTEND Nurse Practitioner Family
DX: E61.2 Magnesium deficiency (principal); I10 Essential (primary) hypertension; R73.9 Hyperglycemia, unspecified; E78.5 Hyperlipidemia, unspecified; Z13.9 Encounter for screening, unspecified; E55.9 Vitamin D deficiency, unspecified

== ENCOUNTER → 2019-10-14 | Outpatient (CLI) | payer OTHER ==
--- NOTE | 2019-10-14 14:11 | REPMRS ---
Patient History The patient states she has not had a clinical breast exam in over a year. No known family history of cancer. 3D TOMOSYNTHESIS WAS PERFORMED. [facility] for [facility] 12.8 %. VOLBRUCE MENDOSA B. Digital Woman Screen Mammo: October 14, 2019 - Exam #: [id number] Bilateral CC and MLO view(s) were taken. Technologist: Sole Walton, Technologist Prior study comparison: August 14, 2018, bilateral digital mammo screening bilat, performed at [facility]. November 24, 2015, bilateral digital mammo screening bilat, performed at [facility]. FINDINGS: The breast tissue is heterogeneously dense. This may lower the sensitivity of mammography. There has been no change in the appearance of the mammogram from the prior studies. There is a moderate amount of residual fibroglandular tissue which is fairly symmetric. There is no interval development of dominant mass, areas of architectural distortion, or clustered microcalcification typical of malignancy. Assessment: BI-RADS/ACR category 1 mammogram. Negative Mammogram. Recommendation Routine screening mammogram in 1 year (for women over age 40). This mammogram was interpreted with the aid of an FDA-approved computer-aided dectection system. Electronically Signed By: Bill Espino MD 10/14/19 [id number]
== END ==
LOC: M WHC 13:05
PROVIDERS: ATTEND Nurse Practitioner Family
DX: Z12.31 Encounter for screening mammogram for malignant neoplasm of breast (principal)

== ENCOUNTER → 2019-12-08 | Outpatient (REF) | payer OTHER ==
[2019-12-08 15:30] LABS: APPEARANCE, URINE HAZY (CLEAR); BACTERIA, URINE AUTO 1+ (NEGATIVE); BILIRUBIN, URINE AUTO NEGATIVE (NEGATIVE); BLOOD, URINE BLOOD NEGATIVE (NEGATIVE); COLOR, URINE YELLOW (YELLOW); GLUCOSE, URINE (UA) AUTO 3+ mg/dL (NEGATIVE); KETONE, URINE AUTO NEGATIVE (NEGATIVE); LEUKOCYTE ESTERASE, URINE AUTO NEGATIVE (NEGATIVE); NITRITE, URINE AUTO NEGATIVE (NEGATIVE); PROTEIN, URINE AUTO NEGATIVE (NEGATIVE); RBC, URINE AUTO 2 /HPF (0-3); SPECIFIC GRAVITY URINE AUTO 1.027 (1.002-1.035); SQUAMOUS EPITHELIAL CELL UR AU 4 /HPF (0-6); UROBILINOGEN, URINE AUTO 0.2 mg/dL (0.0-2.0); WBC, URINE AUTO 3 /HPF (0-3)
== END ==
LOC: M LAB REF 11:36
PROVIDERS: ATTEND Nurse Practitioner Family
DX: R30.0 Dysuria (principal); N39.0 Urinary tract infection, site not specified

== ENCOUNTER → 2020-02-29 | Outpatient (REF) | payer OTHER, MEDICAID ==
[2020-02-29 12:26] LABS: BASO % 0.5 % (0.0-1.0); EOS # 0.4 10^3/uL (0.0-0.5); EOS % 4.4 % (0.0-3.0); HEMATOCRIT 43.8 % (36.0-47.0); HEMOGLOBIN 13.5 g/dl (12.0-15.5); LYMPH # 2.8 10^3/uL (1.5-5.0); LYMPH % 34.2 % (24.0-44.0); MEAN CORPUSCULAR HEMOGLOBIN 27.4 pg (27.0-33.0); MEAN CORPUSCULAR HGB CONC 30.8 g/dl (32.0-36.5); MONO # 0.6 10^3/uL (0.0-0.8); MONO % 6.9 % (0.0-5.0); NEUTROPHILS # 4.4 10^3/uL (1.5-8.5); NEUTROPHILS % 53.8 % (36.0-66.0); PLATELET COUNT, AUTOMATED 343 10^3/uL (150-450); RED BLOOD COUNT 4.92 10^6/uL (4.00-5.40); WHITE BLOOD COUNT 8.2 10^3/uL (4.0-10.0)
[2020-02-29 13:13] LABS: ALBUMIN 3.5 GM/DL (3.2-5.2); ALT/SGPT 42 U/L (12-78); BILIRUBIN,TOTAL 0.3 MG/DL (0.2-1.0); BLOOD UREA NITROGEN 15 MG/DL (7-18); CALCIUM LEVEL 9.2 MG/DL (8.5-10.1); CARBON DIOXIDE LEVEL 27 MEQ/L (21-32); CHLORIDE LEVEL 101 MEQ/L (98-107); CHOLESTEROL LEVEL 213 MG/DL (<200); CHOLESTEROL RISK RATIO 4.437 (<5); CREATININE FOR GFR 0.84 MG/DL (0.55-1.30); FREE T4 0.97 NG/DL (0.76-1.46); GLOMERULAR FILTRATION RATE > 60.0 (>51); GLUCOSE, FASTING 162 MG/DL (70-100); HDL CHOLESTEROL 48 MG/DL (>40); LDL CHOLESTEROL 131 MG/DL (<100); NON-HDL-C 165 MG/DL; POTASSIUM SERUM 4.4 MEQ/L (3.5-5.1); SODIUM LEVEL 138 MEQ/L (136-145); TOTAL 25(OH) VITAMIN D 26.3 NG/ML (30.0-100.0); TOTAL PROTEIN 7.2 GM/DL (6.4-8.2); TRIGLYCERIDES LEVEL 169 MG/DL (<150)
[2020-02-29 17:41] LABS: HEMOGLOBIN A1c 8.8 %
== END ==
LOC: M LAB REF 11:35
PROVIDERS: ATTEND Nurse Practitioner Family
DX: E11.69 Type 2 diabetes mellitus with other specified complication (principal); R30.0 Dysuria; D64.9 Anemia, unspecified; E78.5 Hyperlipidemia, unspecified; Z13.9 Encounter for screening, unspecified; E55.9 Vitamin D deficiency, unspecified; E66.9 Obesity, unspecified

== ENCOUNTER → 2020-03-14 | Outpatient (CLI) | payer OTHER, MEDICAID ==
[2020-03-14 10:31] LABS: BLOOD UREA NITROGEN 17 MG/DL (7-18); CARBON DIOXIDE LEVEL 29 MEQ/L (21-32); CHLORIDE LEVEL 103 MEQ/L (98-107); CREATININE FOR GFR 0.89 MG/DL (0.55-1.30); GLOMERULAR FILTRATION RATE > 60.0 (>51); GLUCOSE, FASTING 203 MG/DL (70-100); POTASSIUM SERUM 4.5 MEQ/L (3.5-5.1); SODIUM LEVEL 137 MEQ/L (136-145)
== END ==
LOC: M LAB 09:30
PROVIDERS: ATTEND Surgery
DX: K91.2 Postsurgical malabsorption, not elsewhere classified (principal); Z86.39 Personal history of other endocrine, nutritional and metabolic disease

== ENCOUNTER → 2020-03-16 | Outpatient (CLI) | payer OTHER ==
[~2020-03-16] MED LIST changes: +GASTROGRAFIN SOLUTION 30ML (Q9963) As Ordered ONE; +ISOVUE-370 76% 100ML VIAL As Ordered ONE
--- NOTE | 2020-03-16 19:08 | REP ---
INDICATION: ABD DISTENTION GASEOUS. COMPARISON: Abdomen and pelvis CT with IV and bowel contrast dated 04/30/2018. TECHNIQUE: Abdomen and pelvis CT with IV and bowel contrast FINDINGS: A nodule is again identified in the anterior segment of the left lower lobe in the visualized lower lung guerrier. This nodule today measures 12 mm. It measured 14 mm previously. The hepatic parenchyma is diffusely less dense than the spleen suggestive of hepato steatosis. This is unchanged. There are no hepatic masses. Surgical clips are again identified in the gallbladder fossa. The pancreas and spleen are unremarkable. The adrenals, kidneys and abdominal aorta are unremarkable. There is no periaortic adenopathy or mass. There is no bowel distention. There is a large volume of retained ingested material in the stomach. The mesentery is unremarkable. Pelvis: The uterus and adnexa are unremarkable. There is no adenopathy or free fluid. The pelvic bowel loops are unremarkable. IMPRESSION: There is a large volume of ingested material in the stomach. There is no bowel distention or obstruction. There is no ascites, adenopathy or mass. Hepato steatosis, unchanged. There is a nodule in the anterior segment of the left lung lower lobe, decreased in size from the prior study. <Electronically signed by Bill Joseph > 03/16/20 [id number]
== END ==
LOC: M RAD 14:32
PROVIDERS: ATTEND Surgery
DX: R14.0 Abdominal distension (gaseous) (principal)
CPT/HCPCS: 74177; Q9963; Q9967

== ENCOUNTER → 2020-06-10 | Outpatient (REF) | payer OTHER ==
[~2020-06-10] MED LIST changes: -GASTROGRAFIN SOLUTION 30ML (Q9963) As Ordered ONE; -ISOVUE-370 76% 100ML VIAL As Ordered ONE
[2020-06-10 12:42] LABS: BASO # 0.1 10^3/uL (0.0-0.2); BASO % 0.8 % (0.0-1.0); EOS # 0.2 10^3/uL (0.0-0.5); EOS % 3.4 % (0.0-3.0); HEMOGLOBIN 13.3 g/dl (12.0-15.5); LYMPH % 27.8 % (24.0-44.0); MEAN CORPUSCULAR HEMOGLOBIN 27.8 pg (27.0-33.0); MEAN CORPUSCULAR HGB CONC 30.9 g/dl (32.0-36.5); MEAN CORPUSCULAR VOLUME 89.8 fl (80.0-96.0); MONO # 0.6 10^3/uL (0.0-0.8); MONO % 7.8 % (2.0-8.0); NEUTROPHILS # 4.3 10^3/uL (1.5-8.5); NEUTROPHILS % 59.9 % (36.0-66.0); PLATELET COUNT, AUTOMATED 324 10^3/uL (150-450); RED BLOOD COUNT 4.79 10^6/uL (4.00-5.40); WHITE BLOOD COUNT 7.2 10^3/uL (4.0-10.0)
[2020-06-10 13:37] LABS: ALBUMIN 3.6 GM/DL (3.2-5.2); ALT/SGPT 40 U/L (12-78); BILIRUBIN,TOTAL 0.2 MG/DL (0.2-1.0); BLOOD UREA NITROGEN 18 MG/DL (7-18); CALCIUM LEVEL 9.5 MG/DL (8.5-10.1); CARBON DIOXIDE LEVEL 30 MEQ/L (21-32); CHLORIDE LEVEL 102 MEQ/L (98-107); CHOLESTEROL LEVEL 209 MG/DL (<200); CHOLESTEROL RISK RATIO 4.354 (<5); CREATININE FOR GFR 0.76 MG/DL (0.55-1.30); GLOMERULAR FILTRATION RATE > 60.0 (>51); GLUCOSE, FASTING 203 MG/DL (70-100); HDL CHOLESTEROL 48 MG/DL (>40); LDL CHOLESTEROL 132 MG/DL (<100); NON-HDL-C 161 MG/DL; POTASSIUM SERUM 4.9 MEQ/L (3.5-5.1); SODIUM LEVEL 138 MEQ/L (136-145); TOTAL 25(OH) VITAMIN D 27.2 NG/ML (30.0-100.0); TOTAL PROTEIN 7.1 GM/DL (6.4-8.2); TRIGLYCERIDES LEVEL 143 MG/DL (<150)
[2020-06-10 14:10] LABS: HEMOGLOBIN A1c 8.1 %
== END ==
LOC: M LAB REF 12:24
PROVIDERS: ATTEND Nurse Practitioner Family
DX: E66.01 Morbid (severe) obesity due to excess calories (principal)

== ENCOUNTER → 2020-07-11 | Outpatient (CLI) | payer OTHER ==
--- NOTE | 2020-07-11 10:37 | REP ---
INDICATION: SOLITARY PULMONARY NODULE COMPARISON: 07/13/2019, 11/26/2018, 05/02/2018 TECHNIQUE: Axial noncontrast images from the thoracic inlet to the upper abdomen with coronal and sagittal reformations. This CT examination was performed using the following dose reduction techniques: Automated exposure control, adjustment of mA and/or kv according to the patient's size, and use of iterative reconstruction technique. FINDINGS: 12 mm noncalcified nodule again identified in the left lower lobe which appears relatively stable as compared through 05/02/2018. The lung guerrier are otherwise well aerated and essentially clear. No further acute consolidation, suspicious nodule or mass lesion appreciated. No pleural effusion. No pneumothorax. Tracheobronchial tree is patent. Mediastinal lymph nodes remain stable. However, there appears to be prominent left axillary lymph nodes of uncertain etiology and appearing somewhat increased from prior examination. Thoracic aorta, pulmonary vasculature, and heart/pericardium are normal. Limited upper abdomen demonstrates hepatosteatosis and normal bilateral adrenal glands. Surrounding musculoskeletal structures intact and without acute osseous abnormality. IMPRESSION: 1. 12 mm noncalcified nodule in the left lower lobe relatively similar to prior examinations. No new acute mediastinal or pleuroparenchymal process appreciated. 2. Mildly prominent left axillary lymph nodes may warrant further investigation. <Electronically signed by Oscar Renner > 07/11/20 [id number]
== END ==
LOC: M RAD 09:39
PROVIDERS: ATTEND Internal Medicine Pulmonary Disease
DX: R91.8 Other nonspecific abnormal finding of lung field (principal); B39.2 Pulmonary histoplasmosis capsulati, unspecified

== ENCOUNTER → 2020-09-02 | Outpatient (REF) | payer OTHER ==
[2020-09-02 17:33] LABS: BASO # 0.1 10^3/uL (0.0-0.2); BASO % 0.6 % (0.0-1.0); EOS # 0.3 10^3/uL (0.0-0.5); EOS % 3.8 % (0.0-3.0); HEMATOCRIT 42.3 % (36.0-47.0); HEMOGLOBIN 13.4 g/dl (12.0-15.5); LYMPH # 2.3 10^3/uL (1.5-5.0); LYMPH % 25.7 % (24.0-44.0); MEAN CORPUSCULAR HEMOGLOBIN 28.6 pg (27.0-33.0); MEAN CORPUSCULAR HGB CONC 31.7 g/dl (32.0-36.5); MEAN CORPUSCULAR VOLUME 90.4 fl (80.0-96.0); MONO # 0.6 10^3/uL (0.0-0.8); MONO % 6.1 % (2.0-8.0); NEUTROPHILS # 5.7 10^3/uL (1.5-8.5); NEUTROPHILS % 63.4 % (36.0-66.0); PLATELET COUNT, AUTOMATED 295 10^3/uL (150-450); RED BLOOD COUNT 4.68 10^6/uL (4.00-5.40)
[2020-09-02 18:02] LABS: ALT/SGPT 59 U/L (12-78); BILIRUBIN,TOTAL 0.3 MG/DL (0.2-1.0); BLOOD UREA NITROGEN 16 MG/DL (7-18); CALCIUM LEVEL 8.3 MG/DL (8.5-10.1); CARBON DIOXIDE LEVEL 25 MEQ/L (21-32); CHLORIDE LEVEL 107 MEQ/L (98-107); CHOLESTEROL LEVEL 136 MG/DL (<200); CREATININE FOR GFR 0.71 MG/DL (0.55-1.30); GLOMERULAR FILTRATION RATE > 60.0 (>51); GLUCOSE, FASTING 210 MG/DL (70-100); POTASSIUM SERUM 4.9 MEQ/L (3.5-5.1); SODIUM LEVEL 139 MEQ/L (136-145); TRIGLYCERIDES LEVEL 159 MG/DL (<150)
[2020-09-02 18:03] LABS: ALBUMIN 3.2 GM/DL (3.2-5.2); CHOLESTEROL RISK RATIO 3.578 (<5); HDL CHOLESTEROL 38 MG/DL (>40); LDL CHOLESTEROL 66 MG/DL (<100); MAGNESIUM LEVEL 1.8 MG/DL (1.8-2.4); NON-HDL-C 98 MG/DL; TOTAL PROTEIN 6.7 GM/DL (6.4-8.2)
[2020-09-02 18:09] LABS: TOTAL 25(OH) VITAMIN D 27.3 NG/ML (30.0-100.0)
[2020-09-02 18:38] LABS: HEMOGLOBIN A1c 9.1 %
== END ==
LOC: M LAB REF 16:29
PROVIDERS: ATTEND Nurse Practitioner Family
DX: E11.9 Type 2 diabetes mellitus without complications (principal); E66.9 Obesity, unspecified; E55.9 Vitamin D deficiency, unspecified; I10 Essential (primary) hypertension

== ENCOUNTER → 2020-09-24 | Outpatient (CLI) | payer OTHER ==
[~2020-09-24] MED LIST changes: +D31000TA2 PO; +FLUC150T PO; +MAGN400T3 PO; +OMEP40CA4 PO; -OMEP40CA97 PO; +SIMV40TA20 PO; +TRUL0.5I SQ
== END ==
LOC: M LABSMTC 11:01
PROVIDERS: ATTEND Anesthesiology
DX: Z01.818 Encounter for other preprocedural examination (principal); Z11.52 Encounter for screening for COVID-19

== ENCOUNTER 2020-09-29 06:39 | Day surgery (SDC) | payer OTHER ==
[~2020-09-29] VITALS: Ht 157.5 cm; Wt 125.1 kg
[~2020-09-29 06:39] MED LIST changes: +NS 1,000 ML IV ONE
[2020-09-29] MEDS ORDERED: fentaNYL 100 MCG/2 ML INJECTION (J3010) As Ordered ONE (06:48)
[2020-09-29] MEDS ORDERED: LIDOCAINE 2% 100MG/5ML SDV (FOR ANES.) As Ordered ONE (06:48)
[2020-09-29] MEDS ORDERED: propofoL 200 MG/20 ML VIAL As Ordered ONE (06:48)
--- NOTE | 2020-09-29 07:45 | ROOR ---
Patient Name: Jenise Unger Procedure Date: 09/29/2020 7:29 AM Date of : 1965 Age: 55 Room: [facility] Gender: Female Note Status: Finalized Procedure: Upper GI endoscopy Indications: Heartburn Providers: Miguel Garcia MD Referring MD: Lisa Lopez NP, Armando CARMEN MD Requesting Provider: Medicines: Monitored Anesthesia Care Complications: No immediate complications. Procedure: Pre-Anesthesia Assessment: - The heart rate, respiratory rate, oxygen saturations, blood pressure, adequacy of pulmonary ventilation, and response to care were monitored throughout the procedure. The Endoscope was introduced through the mouth, and advanced to the second part of duodenum. The upper GI endoscopy was performed with difficulty due to presence of food. Successful completion of the procedure was aided by lavage. The patient tolerated the procedure well. Findings: A medium amount of food (residue) was found in the entire examined stomach. No gross lesions were noted in the entire examined stomach. Biopsies were taken with a cold forceps for Helicobacter pylori testing. The examined esophagus was normal. The examined duodenum was normal. Impression: - A medium amount of food (residue) in the stomach. - No gross lesions in the stomach. Biopsied. - Normal esophagus. - Normal examined duodenum. Recommendation: - Gastroparesis diet: - Eat smaller, more frequent meals throughout the day. - Low fat diet. - Liquid/soft foods are tolerated better than solid foods. - Low fiber/well cooked vegetables are tolerated better than high fiber/fibrous foods/raw vegetables. - Avoid medications that inhibit gastric/intestinal motility such as narcotic medications. Procedure Code(s): --- Professional --- 49581, Esophagogastroduodenoscopy, flexible, transoral; with biopsy, single or multiple Diagnosis Code(s): --- Professional --- R12, Heartburn CPT copyright 2019 [employer]. All rights reserved. The codes documented in this report are preliminary and upon manufacturing lead review may be revised to meet current compliance requirements. Miguel Garcia MD Miguel Garcia MD 09/29/2020 7:45:07 AM Electronically signed by Miguel Garcia MD Number of Addenda: 0 Note Initiated On: 09/29/2020 7:29 AM Estimated Blood Loss: Estimated blood loss: none.
[2020-09-29 08:13] VITALS: BP 148/74
== END 2020-09-29 08:15 | disposition home or self-care (01) ==
LOC: M OPP 06:39
PROVIDERS: ATTEND Internal Medicine Gastroenterology
DX: R12 Heartburn (principal); Z79.84 Long term (current) use of oral hypoglycemic drugs; Z79.899 Other long term (current) drug therapy; Z88.5 Allergy status to narcotic agent
CPT/HCPCS: 43239; 88305; J3010

== ENCOUNTER → 2020-11-08 | Outpatient (REF) | payer OTHER ==
[~2020-11-08] MED LIST changes: -NS 1,000 ML IV ONE
[2020-11-09 17:55] LABS: APPEARANCE, URINE TURBID (CLEAR); BACTERIA, URINE AUTO NEGATIVE (NEGATIVE); BILIRUBIN, URINE AUTO NEGATIVE (NEGATIVE); BLOOD, URINE BLOOD 2+ (NEGATIVE); COLOR, URINE YELLOW (YELLOW); GLUCOSE, URINE (UA) AUTO 1+ mg/dL (NEGATIVE); KETONE, URINE AUTO TRACE mg/dL (NEGATIVE); LEUKOCYTE ESTERASE, URINE AUTO 3+ (NEGATIVE); NITRITE, URINE AUTO POSITIVE (NEGATIVE); PROTEIN, URINE AUTO 2+ mg/dL (NEGATIVE); RBC, URINE AUTO 0 /HPF (0-3); SPECIFIC GRAVITY URINE AUTO 1.029 (1.002-1.035); SQUAMOUS EPITHELIAL CELL UR AU 3 /HPF (0-6); UROBILINOGEN, URINE AUTO 0.2 mg/dL (0.0-2.0); WBC, URINE AUTO 33 /HPF (0-3)
== END ==
LOC: M LAB REF 17:02
PROVIDERS: ATTEND Nurse Practitioner Family
DX: E11.8 Type 2 diabetes mellitus with unspecified complications (principal); E55.9 Vitamin D deficiency, unspecified; E66.9 Obesity, unspecified; I10 Essential (primary) hypertension

== ENCOUNTER → 2020-12-23 | Outpatient (REF) | payer OTHER ==
[~2020-12-23] MED LIST changes: -FLUC150T PO; +FLUC150T9 PO; +LOSA50TA28 PO; -LOSA50TA88 PO; -MAGN400T3 PO; +MAGN400T33 PO
[2020-12-23 20:00] LABS: APPEARANCE, URINE CLOUDY (CLEAR); BILIRUBIN, URINE AUTO NEGATIVE (NEGATIVE); BLOOD, URINE BLOOD NEGATIVE (NEGATIVE); COLOR, URINE YELLOW (YELLOW); GLUCOSE, URINE (UA) AUTO 1+ mg/dL (NEGATIVE); KETONE, URINE AUTO TRACE mg/dL (NEGATIVE); LEUKOCYTE ESTERASE, URINE AUTO 2+ (NEGATIVE); NITRITE, URINE AUTO NEGATIVE (NEGATIVE); PROTEIN, URINE AUTO 1+ mg/dL (NEGATIVE); SPECIFIC GRAVITY URINE AUTO 1.024 (1.002-1.035); UROBILINOGEN, URINE AUTO 0.2 mg/dL (0.0-2.0)
[2020-12-23 20:11] LABS: BACTERIA, URINE AUTO 1+ (NEGATIVE); MUCUS, URINE SMALL (NEGATIVE); RBC, URINE AUTO 2 /HPF (0-3); SQUAMOUS EPITHELIAL CELL UR AU 11 /HPF (0-6); WBC, URINE AUTO 26 /HPF (0-3)
== END ==
LOC: M LAB REF 19:13
PROVIDERS: ATTEND Nurse Practitioner Family
DX: R30.0 Dysuria (principal)

== ENCOUNTER → 2021-02-28 | Outpatient (REF) | payer OTHER ==
[~2021-02-28] MED LIST changes: +FLUC150T PO; -FLUC150T9 PO; -LOSA50TA28 PO; +LOSA50TA88 PO
[2021-02-28 17:55] LABS: APPEARANCE, URINE HAZY (CLEAR); BACTERIA, URINE AUTO 2+ (NEGATIVE); BILIRUBIN, URINE AUTO NEGATIVE (NEGATIVE); BLOOD, URINE BLOOD NEGATIVE (NEGATIVE); COLOR, URINE YELLOW (YELLOW); GLUCOSE, URINE (UA) AUTO NEGATIVE (NEGATIVE); KETONE, URINE AUTO NEGATIVE (NEGATIVE); LEUKOCYTE ESTERASE, URINE AUTO 1+ (NEGATIVE); NITRITE, URINE AUTO NEGATIVE (NEGATIVE); PROTEIN, URINE AUTO 1+ mg/dL (NEGATIVE); RBC, URINE AUTO 1 /HPF (0-3); SPECIFIC GRAVITY URINE AUTO 1.024 (1.002-1.035); SQUAMOUS EPITHELIAL CELL UR AU 6 /HPF (0-6); UROBILINOGEN, URINE AUTO 0.2 mg/dL (0.0-2.0); WBC, URINE AUTO 17 /HPF (0-3)
== END ==
LOC: M SMT 16:54
PROVIDERS: ATTEND Urology
DX: Z87.440 Personal history of urinary (tract) infections (principal)

== ENCOUNTER → 2021-04-03 | Outpatient (CLI) | payer OTHER ==
[~2021-04-03] MED LIST changes: -FLUC150T PO; +FLUC150T9 PO; +LOSA50TA28 PO; -LOSA50TA88 PO
[2021-04-03 11:04] LABS: ALBUMIN 3.5 GM/DL (3.2-5.2); ALT/SGPT 51 U/L (12-78); BILIRUBIN,TOTAL 0.4 MG/DL (0.2-1.0); BLOOD UREA NITROGEN 17 MG/DL (7-18); CALCIUM LEVEL 9.2 MG/DL (8.5-10.1); CARBON DIOXIDE LEVEL 29 MEQ/L (21-32); CHLORIDE LEVEL 106 MEQ/L (98-107); CHOLESTEROL LEVEL 169 MG/DL (<200); CREATININE FOR GFR 0.81 MG/DL (0.55-1.30); GLOMERULAR FILTRATION RATE > 60.0 (>51); GLUCOSE, FASTING 116 MG/DL (70-100); HDL CHOLESTEROL 48 MG/DL (>40); LDL CHOLESTEROL 99 MG/DL (<100); NON-HDL-C 121 MG/DL; POTASSIUM SERUM 4.6 MEQ/L (3.5-5.1); SODIUM LEVEL 141 MEQ/L (136-145); THYROID STIMULATING HORMONE 0.987 uIU/ML (0.358-3.740); TOTAL PROTEIN 7.3 GM/DL (6.4-8.2); TRIGLYCERIDES LEVEL 112 MG/DL (<150)
[2021-04-03 11:08] LABS: HEMOGLOBIN A1c 6.8 %
[2021-04-03 11:38] LABS: MALB URINE SIEMENS 77.8 MG/L; MAU/CREAT RATIO 57.6 MCG/MG (0.0-30.0)
== END ==
LOC: M LAB 09:34
PROVIDERS: ATTEND Family Medicine Addiction Medicine
DX: E11.9 Type 2 diabetes mellitus without complications (principal)

== ENCOUNTER → 2021-04-10 | Outpatient (REF) | payer OTHER ==
[~2021-04-10] MED LIST changes: +FLUC150T PO; -FLUC150T9 PO; -LOSA50TA28 PO; +LOSA50TA88 PO
== END ==
LOC: M SMT 16:54
PROVIDERS: ATTEND Urology
DX: Z87.440 Personal history of urinary (tract) infections (principal)

== ENCOUNTER → 2021-05-09 | Outpatient (CLI) | payer OTHER ==
[~2021-05-09] MED LIST changes: -FLUC150T PO; +FLUC150T9 PO; +LOSA50TA28 PO; -LOSA50TA88 PO
== END ==
LOC: M WHC 10:00
PROVIDERS: ATTEND Physician Assistant
DX: Z12.31 Encounter for screening mammogram for malignant neoplasm of breast (principal)

== ENCOUNTER → 2021-08-21 | Outpatient (CLI) | payer OTHER ==
[~2021-08-21] MED LIST changes: -D31000TA2 PO; +VITA100093 PO
== END ==
LOC: M PLAIMG 10:28
PROVIDERS: ATTEND Internal Medicine Pulmonary Disease
DX: R91.1 Solitary pulmonary nodule (principal)

== ENCOUNTER → 2022-01-25 | Outpatient (REF) | payer OTHER ==
[2022-01-25 18:01] LABS: ALBUMIN 3.4 GM/DL (3.2-5.2); ALT/SGPT 63 U/L (12-78); BILIRUBIN,TOTAL 0.4 MG/DL (0.2-1.0); BLOOD UREA NITROGEN 10 MG/DL (7-18); CARBON DIOXIDE LEVEL 25 MEQ/L (21-32); CHLORIDE LEVEL 102 MEQ/L (98-107); CHOLESTEROL LEVEL 227 MG/DL (<200); CHOLESTEROL RISK RATIO 5.044 (<5); CREATININE FOR GFR 0.84 MG/DL (0.55-1.30); GLOMERULAR FILTRATION RATE > 60.0 (>51); GLUCOSE, FASTING 198 MG/DL (70-100); HDL CHOLESTEROL 45 MG/DL (>40); LDL CHOLESTEROL 151 MG/DL (<100); NON-HDL-C 182 MG/DL; POTASSIUM SERUM 4.6 MEQ/L (3.5-5.1); SODIUM LEVEL 135 MEQ/L (136-145); TRIGLYCERIDES LEVEL 156 MG/DL (<150)
[2022-01-25 19:11] LABS: HEMOGLOBIN A1c 9.4 %
== END ==
LOC: M LAB REF 16:17
PROVIDERS: ATTEND Family Medicine Addiction Medicine
DX: E11.65 Type 2 diabetes mellitus with hyperglycemia (principal)

== ENCOUNTER → 2022-01-31 | Outpatient (REF) | payer OTHER ==
[2022-01-31 15:55] LABS: APPEARANCE, URINE MANUAL CLOUDY (CLEAR); BILIRUBIN, URINE MANUAL NEGATIVE (NEGATIVE); COLOR, URINE MANUAL YELLOW (YELLOW); GLUCOSE, URINE (UA) MANUAL 2+(250 MG/DL) mg/dL (NEGATIVE); KETONE, URINE MANUAL NEGATIVE (NEGATIVE); LEUKOCYTE ESTERASE, URINE MAN POSITIVE (NEGATIVE); NITRITE, URINE MANUAL POSITIVE (NEGATIVE); PROTEIN, URINE MANUAL TRACE mg/dL (NEGATIVE); UROBILINOGEN, URINE MANUAL NORMAL (NORMAL)
[2022-01-31 15:56] LABS: BLOOD URINE MANUAL NEGATIVE (NEGATIVE)
[2022-01-31 16:27] LABS: BACTERIA, URINE LARGE AMOUNT; HYALINE CAST, URINE NONE SEEN /lpf (0-1); RBC, URINE 0-1 /hpf (0-3); SQUAMOUS EPITHELIAL CELL URINE MOD AMOUNT /hpf (SMALL AMT)
== END ==
LOC: M SMT 13:13
PROVIDERS: ATTEND Physician Assistant
DX: R30.0 Dysuria (principal)

== ENCOUNTER → 2022-04-25 | Outpatient (REF) | payer OTHER ==
[2022-04-25 12:42] LABS: ALBUMIN 3.5 G/DL (3.2-5.2); ALKALINE PHOSPHATASE 128 U/L (46-116); ALT/SGPT 46 U/L (7.0-40); AST/SGOT 27 U/L (<34); BILIRUBIN,TOTAL 0.3 MG/DL (0.3-1.2); BLOOD UREA NITROGEN 20 MG/DL (9-23); CARBON DIOXIDE LEVEL 26 MMOL/L (20-31); CHLORIDE LEVEL 103 MMOL/L (98-107); CHOLESTEROL LEVEL 196 MG/DL (<200); CHOLESTEROL RISK RATIO 4.11 (<5); CREATININE FOR GFR 0.77 MG/DL (0.55-1.30); GLOMERULAR FILTRATION RATE > 60.0 (>51); GLUCOSE, FASTING 171 MG/DL (60-100); HDL CHOLESTEROL 47.6 MG/DL (>40); LDL CHOLESTEROL 114.4 MG/DL (<100); NON-HDL-C 148 MG/DL; POTASSIUM SERUM 4.6 MMOL/L (3.5-5.1); SODIUM LEVEL 137 MMOL/L (136-145); TOTAL PROTEIN 7.2 G/DL (5.7-8.2); TRIGLYCERIDES LEVEL 170 MG/DL (<150)
[2022-04-25 12:43] LABS: THYROID STIMULATING HORMONE 1.688 uIU/ML (0.55-4.78)
[2022-04-25 12:52] LABS: HEMOGLOBIN A1c 7.5 % (4.0-6.0)
== END ==
LOC: M LAB REF 11:36
PROVIDERS: ATTEND Family Medicine Addiction Medicine
DX: E11.8 Type 2 diabetes mellitus with unspecified complications (principal)

== ENCOUNTER → 2022-07-26 | Outpatient (REF) | payer OTHER ==
[2022-07-26 15:36] LABS: ALBUMIN 3.5 G/DL (3.2-5.2); ALKALINE PHOSPHATASE 116 U/L (46-116); ALT/SGPT 55 U/L (7.0-40); AST/SGOT 31 U/L (<34); BILIRUBIN,TOTAL 0.3 MG/DL (0.3-1.2); BLOOD UREA NITROGEN 14 MG/DL (9-23); CALCIUM LEVEL 9.1 MG/DL (8.5-10.1); CARBON DIOXIDE LEVEL 27 MMOL/L (20-31); CHLORIDE LEVEL 105 MMOL/L (98-107); CHOLESTEROL LEVEL 196 MG/DL (<200); CHOLESTEROL RISK RATIO 4.49 (<5); CREATININE FOR GFR 0.82 MG/DL (0.55-1.30); GLOMERULAR FILTRATION RATE > 60.0 (>51); GLUCOSE, FASTING 132 MG/DL (60-100); HDL CHOLESTEROL 43.6 MG/DL (>40); LDL CHOLESTEROL 124.4 MG/DL (<100); NON-HDL-C 152.4 MG/DL; POTASSIUM SERUM 4.5 MMOL/L (3.5-5.1); SODIUM LEVEL 138 MMOL/L (136-145); THYROID STIMULATING HORMONE 1.578 uIU/ML (0.55-4.78); TOTAL PROTEIN 7.3 G/DL (5.7-8.2); TRIGLYCERIDES LEVEL 140 MG/DL (<150)
[2022-07-26 15:57] LABS: HEMOGLOBIN A1c 7.9 % (4.0-6.0)
== END ==
LOC: M LAB REF 12:54
PROVIDERS: ATTEND Family Medicine Addiction Medicine
DX: E11.8 Type 2 diabetes mellitus with unspecified complications (principal)

== ENCOUNTER → 2022-11-09 | Outpatient (REF) | payer OTHER ==
[2022-11-09 12:39] LABS: HEMOGLOBIN A1c 6.8 % (4.0-6.0)
[2022-11-09 12:42] LABS: ALBUMIN 3.6 G/DL (3.2-5.2); ALKALINE PHOSPHATASE 109 U/L (46-116); ALT/SGPT 41 U/L (7.0-40); AST/SGOT 12 U/L (<34); BILIRUBIN,TOTAL 0.6 MG/DL (0.3-1.2); BLOOD UREA NITROGEN 13 MG/DL (9-23); CALCIUM LEVEL 8.9 MG/DL (8.5-10.1); CARBON DIOXIDE LEVEL 25 MMOL/L (20-31); CHLORIDE LEVEL 106 MMOL/L (98-107); CHOLESTEROL LEVEL 167 MG/DL (<200); CHOLESTEROL RISK RATIO 3.52 (<5); CREATININE FOR GFR 0.72 MG/DL (0.55-1.30); GLOMERULAR FILTRATION RATE > 60.0 (>51); GLUCOSE, FASTING 130 MG/DL (60-100); HDL CHOLESTEROL 47.4 MG/DL (>40); LDL CHOLESTEROL 97.2 MG/DL (<100); NON-HDL-C 119.6 MG/DL; SODIUM LEVEL 142 MMOL/L (136-145); TRIGLYCERIDES LEVEL 112 MG/DL (<150)
[2022-11-09 12:53] LABS: THYROID STIMULATING HORMONE 1.306 uIU/ML (0.55-4.78)
== END ==
LOC: M LAB REF 11:29
PROVIDERS: ATTEND Family Medicine Addiction Medicine
DX: E11.8 Type 2 diabetes mellitus with unspecified complications (principal)

== ENCOUNTER → 2023-04-26 | Outpatient (REF) | payer OTHER ==
[2023-04-26 13:59] LABS: CREATININE, URINE 129.1 MG/DL; MAU/CREAT RATIO 24.7 MCG/MG (0.0-30.0)
[2023-04-26 18:54] LABS: ALBUMIN 3.5 G/DL (3.2-5.2); ALKALINE PHOSPHATASE 98 U/L (46-116); ALT/SGPT 27 U/L (7.0-40); AST/SGOT 13 U/L (<34); BILIRUBIN,TOTAL 0.4 MG/DL (0.3-1.2); BLOOD UREA NITROGEN 18 MG/DL (9-23); CALCIUM LEVEL 9.3 MG/DL (8.5-10.1); CARBON DIOXIDE LEVEL 26 MMOL/L (20-31); CHLORIDE LEVEL 108 MMOL/L (98-107); CHOLESTEROL LEVEL 163 MG/DL (<200); CHOLESTEROL RISK RATIO 3.81 (<5); CREATININE FOR GFR 0.81 MG/DL (0.55-1.30); GLOMERULAR FILTRATION RATE > 60.0 (>51); GLUCOSE, FASTING 107 MG/DL (60-100); HDL CHOLESTEROL 42.7 MG/DL (>40); LDL CHOLESTEROL 97.7 MG/DL (<100); NON-HDL-C 120.3 MG/DL; SODIUM LEVEL 142 MMOL/L (136-145); TOTAL PROTEIN 6.9 G/DL (5.7-8.2); TRIGLYCERIDES LEVEL 113 MG/DL (<150)
[2023-04-26 18:55] LABS: THYROID STIMULATING HORMONE 1.085 uIU/ML (0.55-4.78)
[2023-04-26 19:10] LABS: HEMOGLOBIN A1c 5.9 % (4.0-6.0)
== END ==
LOC: M LAB REF 12:31
PROVIDERS: ATTEND Family Medicine Addiction Medicine
DX: E11.65 Type 2 diabetes mellitus with hyperglycemia (principal)

== ENCOUNTER → 2023-05-13 | Outpatient (CLI) | payer OTHER | LOC: M SOG 07:58 | PROVIDERS: ATTEND Orthopaedic Surgery | DX: M25.561 Pain in right knee (principal); M25.562 Pain in left knee ==

== ENCOUNTER → 2023-08-21 | Outpatient (REF) | LOC: M PLAIMG 12:23 | PROVIDERS: ATTEND Internal Medicine | DX: R52 Pain, unspecified (principal) ==

== ENCOUNTER → 2024-02-24 | Outpatient (REF) | payer OTHER ==
[2024-02-24 14:17] LABS: ALBUMIN 3.4 G/DL (3.2-5.2); ALKALINE PHOSPHATASE 92 U/L (35-104); ALT/SGPT 74 U/L (7.0-40); AST/SGOT 49 U/L (<34); BILIRUBIN,TOTAL 0.3 MG/DL (0.3-1.2); BLOOD UREA NITROGEN 11 MG/DL (9-23); CALCIUM LEVEL 9.4 MG/DL (8.5-10.1); CARBON DIOXIDE LEVEL 28 MMOL/L (20-31); CHLORIDE LEVEL 106 MMOL/L (98-107); CHOLESTEROL LEVEL 213 MG/DL (<200); CHOLESTEROL RISK RATIO 4.97 (<5); CREATININE FOR GFR 0.69 MG/DL (0.55-1.30); GLOMERULAR FILTRATION RATE > 60.0 (>51); GLUCOSE, FASTING 149 MG/DL (60-100); HDL CHOLESTEROL 42.8 MG/DL (>40); LDL CHOLESTEROL 142.4 MG/DL (<100); NON-HDL-C 170.2 MG/DL; POTASSIUM SERUM 4.4 MMOL/L (3.5-5.1); SODIUM LEVEL 140 MMOL/L (136-145); TOTAL PROTEIN 6.9 G/DL (5.7-8.2); TRIGLYCERIDES LEVEL 139 MG/DL (<150)
[2024-02-24 14:19] LABS: THYROID STIMULATING HORMONE 1.914 uIU/ML (0.55-4.78)
[2024-02-24 14:28] LABS: CREATININE, URINE 86.4 MG/DL
[2024-02-24 14:29] LABS: MAU/CREAT RATIO 16.2 MCG/MG (0.0-30.0)
== END ==
LOC: M LAB REF 12:58
PROVIDERS: ATTEND Family Medicine Addiction Medicine
DX: E11.69 Type 2 diabetes mellitus with other specified complication (principal)

== ENCOUNTER → 2024-04-24 | Outpatient (REF) | payer OTHER | LOC: M LAB REF 16:12 | PROVIDERS: ATTEND Physician Assistant | DX: R35.89 Other polyuria (principal) ==

== ENCOUNTER → 2024-05-15 | Outpatient (CLI) | payer OTHER ==
[2024-05-15 12:51] LABS: ALBUMIN 3.6 G/DL (3.2-5.2); ALKALINE PHOSPHATASE 103 U/L (35-104); ALT/SGPT 68 U/L (7.0-40); AST/SGOT 37 U/L (<34); BILIRUBIN,TOTAL 0.5 MG/DL (0.3-1.2); BLOOD UREA NITROGEN 14 MG/DL (9-23); CALCIUM LEVEL 9.2 MG/DL (8.5-10.1); CARBON DIOXIDE LEVEL 30 MMOL/L (20-31); CHLORIDE LEVEL 98 MMOL/L (98-107); CREATININE FOR GFR 0.66 MG/DL (0.55-1.30); GLOMERULAR FILTRATION RATE > 60.0 (>51); GLUCOSE, FASTING 182 MG/DL (60-100); POTASSIUM SERUM 4.3 MMOL/L (3.5-5.1); SODIUM LEVEL 140 MMOL/L (136-145); TOTAL PROTEIN 7.3 G/DL (5.7-8.2)
== END ==
LOC: M LAB 09:33
PROVIDERS: ATTEND Physician Assistant
DX: E10.9 Type 1 diabetes mellitus without complications (principal)

== ENCOUNTER → 2024-05-21 | Outpatient (CLI) | payer OTHER | LOC: M SOG 07:54 | PROVIDERS: ATTEND Physician Assistant | DX: M25.562 Pain in left knee (principal); M25.561 Pain in right knee ==

== ENCOUNTER → 2024-05-29 | Outpatient (CLI) | payer OTHER ==
[~2024-05-29] MED LIST changes: +ISOVUE-370 76% 100ML VIAL ONE
== END ==
LOC: M PLAIMG 12:42
PROVIDERS: ATTEND Physician Assistant
DX: R10.30 Lower abdominal pain, unspecified (principal); K76.0 Fatty (change of) liver, not elsewhere classified

== ENCOUNTER → 2024-06-01 | Outpatient (CLI) | payer OTHER ==
[~2024-06-01] MED LIST changes: -ISOVUE-370 76% 100ML VIAL ONE
== END ==
LOC: M SOG 07:55
PROVIDERS: ATTEND Physician Assistant
DX: M25.562 Pain in left knee (principal); M25.561 Pain in right knee

== ENCOUNTER → 2024-08-11 | Outpatient (REF) | payer OTHER ==
[2024-08-13 15:22] LABS: HPV APTIMA Not Detected (Not Detected)
== END ==
LOC: M LAB REF 15:55
PROVIDERS: ATTEND Physician Assistant
DX: Z12.4 Encounter for screening for malignant neoplasm of cervix (principal)

== ENCOUNTER → 2024-11-19 | Outpatient (REF) | payer OTHER ==
[2024-11-19 14:19] LABS: ALT/SGPT 43 U/L (7.0-40); AST/SGOT 30 U/L (<34); CALCIUM LEVEL 9.4 MG/DL (8.5-10.1); CARBON DIOXIDE LEVEL 28 MMOL/L (20-31); CHLORIDE LEVEL 104 MMOL/L (98-107); CHOLESTEROL LEVEL 202 MG/DL (<200); CHOLESTEROL RISK RATIO 4.75 (<5); CREATININE FOR GFR 0.67 MG/DL (0.55-1.30); GLOMERULAR FILTRATION RATE > 90.0 (>51); LDL CHOLESTEROL 127.7 MG/DL (<100); NON-HDL-C 159.5 MG/DL; POTASSIUM SERUM 4.7 MMOL/L (3.5-5.1); SODIUM LEVEL 143 MMOL/L (136-145); TRIGLYCERIDES LEVEL 159 MG/DL (<150)
[2024-11-19 14:39] LABS: ESTIMATED AVERAGE GLUCOSE 169.0 MG/DL (60-110)
== END ==
LOC: M LAB REF 12:07
PROVIDERS: ATTEND Family Medicine Addiction Medicine
DX: E11.69 Type 2 diabetes mellitus with other specified complication (principal)

== ENCOUNTER → 2025-02-12 | Outpatient (REF) | payer OTHER ==
[2025-02-12 16:54] LABS: ALT/SGPT 45 U/L (7.0-40); AST/SGOT 23 U/L (<34); CALCIUM LEVEL 9.2 MG/DL (8.5-10.1); CARBON DIOXIDE LEVEL 28 MMOL/L (20-31); CHLORIDE LEVEL 103 MMOL/L (98-107); CHOLESTEROL LEVEL 189 MG/DL (<200); CHOLESTEROL RISK RATIO 4.27 (<5); CREATININE FOR GFR 0.71 MG/DL (0.55-1.30); GLOMERULAR FILTRATION RATE > 90.0 (>51); LDL CHOLESTEROL 113.0 MG/DL (<100); NON-HDL-C 144.8 MG/DL; POTASSIUM SERUM 4.4 MMOL/L (3.5-5.1); SODIUM LEVEL 140 MMOL/L (136-145); TRIGLYCERIDES LEVEL 159 MG/DL (<150)
[2025-02-12 17:04] LABS: ESTIMATED AVERAGE GLUCOSE 163.0 MG/DL (60-110)
== END ==
LOC: M LAB REF 16:17
PROVIDERS: ATTEND Family Medicine Addiction Medicine
DX: E11.8 Type 2 diabetes mellitus with unspecified complications (principal)